=== PATIENT | female | born 1995 | race African-American/Black ===

== ENCOUNTER 2017-05-08 13:13 | Emergency (ER) | payer SELFPAY ==
[2017-05-08 13:59] LABS: Pregnancy Test - Urine (BHCG) Negative (Negative); Pregu Control Background? CLEAR/WHITE (CLR/WHITE); Pregu Control Bar Appear? YES (CONTROL BAR); Specific Gravity 1.025 (1.002-1.036)
[2017-05-08] MEDS ORDERED: Ketorolac Tromethamine 30 MG/ML VIAL ONE (14:10)
== END 2017-05-08 14:31 | disposition home or self-care (01) ==
LOC: ERS 13:13
DX: K02.9 Dental caries, unspecified (principal)
CPT/HCPCS: 81025; 96372; J1885

== ENCOUNTER 2019-04-04 21:19 | Emergency (ER) | payer SELFPAY ==
[2019-04-04] MEDS ORDERED: Ondansetron ODT 4 MG TAB ONE (22:29)
== END 2019-04-04 22:35 | disposition home or self-care (01) ==
LOC: ERS 21:19
DX: B34.9 Viral infection, unspecified (principal); R11.10 Vomiting, unspecified
CPT/HCPCS: 87804; 99283; Q0162

== ENCOUNTER 2023-11-30 13:21 | Outpatient (CLI) | payer BC, OTHER | END 2023-11-30 13:22 | disposition home or self-care (01) | LOC: BICULT 13:21 | PROVIDERS: ATTEND Family Medicine | DX: O09.92 Supervision of high risk pregnancy, unspecified, second trimester (principal); Z3A.21 21 weeks gestation of pregnancy | CPT/HCPCS: 76805 ==